=== PATIENT | male | born 1995 | race Caucasian/White ===

== ENCOUNTER 2021-09-22 10:15 | Emergency (ER) | payer MEDICAID, SELFPAY ==
--- NOTE | 2021-09-22 10:20 | ED.URI ---
HPI - URI/Sore Throat General Chief Complaint: Upper Respiratory Infection Stated Complaint: sore throat Time Seen by Provider: 09/22/21 10:21 History of Present Illness HPI Narrative: Patient is a 25-year-old male who presents the urgent care with complaints of a sore throat for the last 4 days. Patient denies any fever, nausea, vomiting. Patient states that he needs a work note before leaving work yesterday due to the sore throat and dizziness. Patient currently denies of any dizziness. Denies any ill exposures. Patient has not taken anything [id number] for his symptoms. No other acute complaints. No acute distress noted. Patient aware of the plan of care. Some parts of this dictation were generated by voice recognition software and may contain typographical and/or grammatical inaccuracies. Related Data Home Medications Medication Instructions Recorded Confirmed No Home Medications 09/22/21 09/22/21 Allergies Allergy/AdvReac Type Severity Reaction Status Date / Time No Known Allergies Allergy Verified 09/22/21 10:30 Review of Systems Review of Systems: CONSTITUTIONAL: Denies fever, chills, or sweats. EYES: Denies visual changes, redness, or discharge. ENT: Denies rhinorrhea, congestion, or otalgia. Reports of sore throat CARDIOVASCULAR: Denies chest pain, palpitations, or edema. RESPIRATORY: Denies cough or dyspnea. GASTROINTESTINAL: Denies abdominal pain, nausea, vomiting, or diarrhea. GENITOURINARY: Denies dysuria or hematuria. SKIN: Denies rash or itching. MUSCULOSKELETAL: Denies back pain, joint pain, or myalgia. NEUROLOGIC: Denies headache, numbness, or weakness. All other systems reviewed are negative, except as documented in HPI. PMFSH Comments At the time of my signature, I reviewed and agree with the nursing past medical, surgical, social, and family history. There is no relevant family history pertinent to the patient complaint. Exam Narrative: GENERAL: This is a well-nourished, well-developed patient, in no apparent distress. HEAD: normocephalic, atraumatic. EYES: PERRL. Sclera clear/white. Vision is grossly intact. EARS: External ears normal, auditory canals clear and without drainage, TMs normal without perforation. Hearing grossly intact. NOSE: External nose normal with no obvious nasal discharge, nares without redness, no rhinorrhea. THROAT: Mucous membranes moist. Mild erythema noted posterior oropharynx with moderate postnasal drainage and bilateral mild tonsillar edema with bilateral exudate NECK: Neck supple, mild nontender right lymphadenopathy CARDIOVASCULAR: Regular rate and rhythm without murmurs, gallops, or rubs. RESPIRATORY: Clear to auscultation. Breath sounds equal bilaterally. No wheezes, rales, or rhonchi. SKIN: warm, intact with no suspicious lesions or rash, good texture and turgor. NEURO: awake, alert, and oriented to person, place and time. There were no obvious focal neurologic abnormalities. EXTREMITIES: No clubbing, cyanosis, or edema. Course Course Level of Care: Express Care Visit Vital Signs Vital signs: Vital Signs Temperature 99.7 F H 09/22/21 10:22 Pulse Rate 96 09/22/21 10:22 Respiratory Rate 16 09/22/21 10:22 Blood Pressure 126/78 09/22/21 10:22 Pulse Oximetry 100 09/22/21 10:22 Oxygen Delivery Room Air 09/22/21 10:22 Temperature 99.7 F H 09/22/21 10:22 Pulse Rate 96 09/22/21 10:22 Respiratory Rate 16 09/22/21 10:22 Blood Pressure 126/78 09/22/21 10:22 Pulse Oximetry 100 09/22/21 10:22 Oxygen Delivery Room Air 09/22/21 10:22 Reviewed MDM - URI/Sore Throat MDM Narrative Medical decision making narrative: Reviewed lab results with the patient. He is aware that strep swab was negative. Educated patient on culture we will call within 72 hours of cultures positive and antibiotics are necessary. Advised the patient to use a daily antihistamine such as Claritin or Zyrtec and use Benadryl prior to bedtime.
[2021-09-22 10:22] VITALS: BP 126/78; PULSE 96; RESP 16; TEMP 37.6; O2SAT 100
== END 2021-09-22 10:45 | disposition home or self-care (01) ==
PROVIDERS: Emergency Provider Nurse Practitioner Family
DX: J02.9 Acute pharyngitis, unspecified (principal)
CPT/HCPCS: 87081; 87880; 99213; G0463